=== PATIENT | female | born 1970 | race Two or more races ===

== ENCOUNTER 2024-06-28 17:12 | Emergency (ER) | payer MEDICAID, SELFPAY ==
[2024-06-28 17:15] VITALS: BMI 40.8
[2024-06-28 17:38] VITALS: BP 141/82; PULSE 68; RESP 18; TEMP 36.9; O2SAT 99
--- NOTE | 2024-06-28 17:59 | XR_ITS ---
Examination: CT abdomen and pelvis without contrast. Coronal 3-D reconstructions. Sagittal 2-D reconstructions. Date and time of exam:June 28, 2024 1824 hrs. Indications: Right lower abdominal pain with nausea beginning 3 days ago CTDI: vol (mGy): 14.1 DLP: (mGycm): 708 Technique: Axial images of the abdomen have been obtained, 3 mm slice thickness Intravenous contrast material has not been administered. Low dose protocols were performed. One or more of the following dose reduction techniques were used; automated exposure control, adjustment of the mA and/or KV according to patient size, use of iterative reconstruction technique. Findings: No focal liver or splenic lesions No pancreatic or adrenal mass Severe scarring right kidney, no hydronephrosis renal or ureteral calculi Aorta normal size Normal appendix No bowel obstruction No diverticulitis or nonspecific colitis Absent uterus Urinary bladder intact Mild lumbar spondylosis Impression: Severe scarring right kidney, no hydronephrosis renal or ureteral calculi Normal appendix No bowel obstruction diverticulitis or free air
--- NOTE | 2024-06-28 17:59 | PD.EDRME ---
Rapid Medical Screening Exam RME Arrival date/time: 06/28/24 17:12 54-year-old female presents to the emergency department today with complaints of pelvic pain and back pain Chief Complaint: Abdominal Pain Vital signs: Vital Signs Temperature 98.4 F 06/28/24 17:38 Pulse Rate 68 06/28/24 17:38 Respiratory Rate 18 06/28/24 17:38 Blood Pressure 141/82 H 06/28/24 17:38 Pulse Oximetry (%) 99 06/28/24 17:38 Oxygen Delivery Method Room Air 06/28/24 17:38
[2024-06-28 18:24] LABS: Collection Type, Urine Clean Catch
[2024-06-28 18:29] LABS: Basophils % (Auto) 0 % (0-2.5); Eosinophils # (Auto) 0.5 Thou/mm3 (0.0-0.5); Eosinophils % (Auto) 8 % (0-10); Hematocrit 38.3 % (36.0-46.0); Hemoglobin 12.7 g/dL (12.0-16.0); Immature Granulocytes % (Auto) 0 % (0-0); Immature Granulocytes Auto 0.01 Thou/mm3 (0.00-0.00); Lymphocytes # (Auto) 2.3 Thou/mm3 (1.0-4.8); Lymphocytes % (Auto) 35 % (10-50); Mean Corpuscular HGB Conc 33.2 g/dl (31.0-37.0); Mean Corpuscular Hemoglobin 28.2 pg (25.0-35.0); Mean Corpuscular Volume 85 fL (80-100); Monocytes # (Auto) 0.3 Thou/mm3 (0.0-0.8); Monocytes % (Auto) 4 % (0-12); Neutrophils # (Auto) 3.6 Thou/mm3 (1.8-7.7); Neutrophils % (Auto) 53 % (37-80); Nucleated Red Blood Cell % 0 /100 WBC (0); Platelet Count 241 Thou/mm3 (140-440); RDW Standard Deviation 41.1 fL (36.4-46.3); Red Blood Count 4.51 Miln/mm3 (4.00-5.20); White Blood Count 6.7 Thou/mm3 (3.6-11.0)
[2024-06-28 18:40] LABS: Bilirubin,Urine Negative (Negative); Blood,Urine Negative (Negative); Clarity,Urine Turbid (Clear/Hazy); Color,Urine Lt-Yellow (Lt Yel-Yel); Glucose, Urine Negative (Negative); Ketones,Urine Negative (Negative); Leukocyte Esterase,Urine Positive (Negative); Nitrite,Urine Positive (Negative); Protein,Urine Negative (Neg - Trace); RBC,Urine < 1 /hpf (0-3); Specific Gravity,Urine 1.018 (1.001-1.035); Squamous Epithelial Cell,Urine 3 /hpf (0-5); Urobilinogen,Urine Negative mg/dL (0.0-1.0); WBC,Urine 16 /hpf (0-5)
[2024-06-28 18:43] LABS: Culture Indicated,Urine Yes
[2024-06-28 18:44] LABS: Alanine Aminotransferase 21 U/L (10-49); Albumin, Serum 4.3 gm/dL (3.5-5.0); Albumin/Globulin Ratio 1.6 (1.2-2.2); Alkaline Phosphatase 118 U/L (46-116); Anion Gap 5 (7-16); Aspartate Amino Transferase 21 U/L (0-34); BUN/Creatinine Ratio 26 Ratio (12-20); Bilirubin,Total 0.2 mg/dL (0.3-1.2); Blood Urea Nitrogen 18 mg/dL (9-23); Calcium 9.4 mg/dL (8.3-10.6); Calcium (Corrected) 9.4 mg/dL (8.5-10.1); Carbon Dioxide 28.2 mMol/L (20.0-31.0); Chloride 106 mMol/L (98-107); Creatinine (Component) 0.7 mg/dL (0.6-1.3); Estimated Creatinine Clearance 82.4 mL/min (>60); Globulin 2.7 gm/dL (2.3-3.5); Glucose 100 mg/dL (74-106); Lipase 41 U/L (12-53); Osmolality,Calculated 279 (275-295); Potassium 4.2 mMol/L (3.4-5.1); Sodium 139 mMol/L (136-145); eGFR > 60 See Note
--- NOTE | 2024-06-28 19:53 | PD.EDABDPN ---
ED Abdominal Pain RME/HPI General Chief Complaint: Abdominal Pain Stated complaint: BACK AND ABD PAIN x 3 DAYS Time seen by provider: 06/28/24 19:37 Arrival date/time: 06/28/24 17:12 54 year old female present to emergency room with c/o right side/flank pain for 3 days. LOCATION: flank/abd pain SEVERITY: Symptoms are described as being severe with limitations on activities of daily living QUALITY: Symptoms are described as being cramping CONTEXT: The patient is unable to identify any inciting events. DURATION/TIMING: The symptoms started approximately 3 day ago and have been waxing/waning but always present without ever completely resolving. ASSOCIATED SYMPTOMS: The patient is unable to identify any other associated symptoms. MODIFYING FACTORS: The patient is unable to identify any alleviating or aggravating symptoms. PERTINENT ROS: no fevers, no anorexia, no nausea or vomiting, no diarrhea, no ripping or tearing sensations, no syncope or presyncopal symptoms, denies trauma, denies genital pain REVIEW OF SYSTEMS: See History of Present Illness - with the exception of those mentioned in the history of present illness, all other systems reviewed and reported as negative GENERAL: In general the patient is awake, interactive, in an emergency department gurney. HEAD/EYES/EARS/NOSE/THROAT: normo-cephalic, atraumatic, mucus membranes are moist, anicteric, palpebral conjunctiva is pink, trachea is midline. CARDIOVASCULAR: regular rate and regular rhythm, no murmurs, heart sounds are not distant, strong pulses in all four extremities that are equal and symmetric bilateral upper and lower extremities, normal capillary refill. CHEST/PULMONARY: normal chest rise and fall, good air movement, clear to auscultation bilaterally, normal inspiratory to expiratory ratios without evidence of respiratory distress. NECK: No midline +right flank/side tenderness, no cva tenderness no masses appreciated BACK: normal range of motion without pain. NEUROLOGICAL: cranio-facial features are symmetric, moves all four extremities equally without obvious limitations or weakness. EXTREMITY: no tenderness to palpation over the long bones or large joints of the bilateral upper and lower extremities, no joint swelling, no joint erythema, no signs of trauma, no unilateral leg swelling and no peripheral edema. SKIN: warm, dry, well-perfused, no jaundice, no rash, no telangiectasias or petechia. PSYCH: calm, cooperative, no evidence of psychosis or agitation RME / HPI RME / HPI narrative: 06/28/24 17:12 54-year-old female presents to the emergency department today with complaints of pelvic pain and back pain Related Data Home Medications ?Medication ?Instructions ?Recorded ?Confirmed aspirin 81 mg tablet,delayed 81 mg PO QDAY 01/24/20 04/17/20 release Previous Rx's ?Medication ?Instructions ?Recorded cephalexin 500 mg capsule (Keflex) 500 mg PO QID #40 caps 04/17/20 ibuprofen 800 mg tablet 800 mg PO Q8H PRN pain #20 tabs 07/22/22 ondansetron 4 mg disintegrating 4 mg PO Q8H PRN nausea and 11/04/22 tablet vomiting #10 tabs ibuprofen 600 mg tablet 600 mg PO Q6H #30 tabs 02/08/24 cephalexin 500 mg capsule 500 mg PO BID 7 days #14 caps 06/28/24 Allergies Allergy/AdvReac Type Severity Reaction Status Date / Time No Known Allergies Allergy Verified 06/28/24 17:18 Course Course Course Narrative: Patient presenting with symptoms consistent with urinary tract infection. No evidence for pyelonephritis, nephrolithiasis, traumatic injury, other significant pathology. Urinalysis shows findings consistent with UTI.? test was obtained and was negative.? GC/C was not obtained at request of pt.? Provided prescription for antibiotics. Advised to followup with primary physician if has continued symptoms. Return to ER if has uncontrolled pain, high fever, concern for dehydration, flank pain or other concerns. Plan:? Prescribed keflex 500mg bid for 7 days, first dose given prior to discharge UTI prevention was discussed including post coital voiding, copious fluids and daily cranberry juice. F/U with PCP if pain continues? ?Informed to return if having uncontrolled pain, high fever, concern for dehydration, flank pain or other concerns. Expressed understanding of and agreement with plan and all questions answered. Quality Measures none Orders Category Date Time Status CT abdomen pelvis wo con Stat Exams 06/28/24 17:59 Completed CBC Stat Lab 06/28/24 18:17 Completed Comprehensive Metabolic Panel Stat Lab 06/28/24 18:17 Completed Lipase Stat Lab 06/28/24 18:17 Completed UA, C/S IF [Urinalysis, C/S if Indicated] Stat Lab 06/28/24 18:05 Completed Urine Culture Stat Lab 06/28/24 18:05 Received cephALEXin [Keflex] Med 06/28/24 19:50 Discontinued 500 mg PO X1 ONE Vital Signs Vital signs: Vital Signs Temperature 98.4 F 06/28/24 17:38 Pulse Rate 68 06/28/24 17:38 Respiratory Rate 18 06/28/24 17:38 Blood Pressure 141/82 H 06/28/24 17:38 Pulse Oximetry (%) 99 06/28/24 17:38 Oxygen Delivery Method Room Air 06/28/24 17:38 Abdominal Pain MDM Patient data External records reviewed:: [facility] previous records Clinical information provided by:: patient Social determinants that could affect healthcare access:: none Patient has the following chronic illnesses:: none How is presenting disease/condition affected by chronic disease/condition?: no chronic disease Evaluation data The following diagnostics were reviewed and interpreted by me:: lab results and radiology exam(s) Lab and/or radiology exams considered but not ordered:: none Interpretation Summary: ct: No focal liver or splenic lesions No pancreatic or adrenal mass Severe scarring right kidney, no hydronephrosis renal or ureteral calculi Aorta normal size Normal appendix No bowel obstruction No diverticulitis or nonspecific colitis Absent uterus Urinary bladder intact Mild lumbar spondylosis Impression: Severe scarring right kidney, no hydronephrosis renal or ureteral calculi Normal appendix No bowel obstruction diverticulitis or free air cbc/cmp no acute findings ua: nitrate + leuks possible UTI, Medications / Prescriptions Medications or Prescriptions considered but not ordered:: none Medication administrations:: Medication Administration History Discontinued Medications Cephalexin HCl (Cephalexin 250 Mg Capsule) 500 mg PO X1 ONE Stop: 06/28/24 19:51 as stated above Consultations Consultation(s) initiated? (list below): No Diagnosis Differential diagnosis abdominal pain: abdominal pain, acute appendicitis, calculus of kidney, constipation, diverticulitis, gastroenteritis, pancreatitis and other (UTI ) Most likely diagnosis given after review of the tests above:: UTI Admission Indicated Admission indicated?: not indicated Admission Request Was there a request for admission?: No Disposition Plan Disposition Plan: Discharge Discharge Attestation Discharge Attestation: The patient and all family members were given an opportunity to ask questions and understood the discharge instructions. Discharge instructions specifically effects, indications for sooner follow up or return to the emergency department, and the expected course of current diagnosis. Patient condition: Stable Discharge Plan Plan Patient Disposition: HOME (Self Care) Health Concerns: Follow with PMD as directed Take tylenol or motrin as need Return to ED if sx worsen Prescriptions/Referrals Prescriptions/Med Rec: New cephalexin 500 mg capsule 500 mg PO BID 7 Days Qty: 14 0RF No Action cephalexin [Keflex] 500 mg capsule 500 mg PO QID Qty: 40 0RF aspirin 81 mg Tablet,Delayed Release (Dr/Ec) 81 mg PO QDAY ibuprofen 800 mg tablet 800 mg PO Q8H PRN (Reason: pain) Qty: 20 0RF ibuprofen 600 mg tablet 600 mg PO Q6H Qty: 30 0RF ondansetron 4 mg tablet,disintegrating 4 mg PO Q8H PRN (Reason: nausea and vomiting) Qty: 10 0RF Referrals: Scott Munoz MD [Primary Care Provider] - In 1 week Problem List Clinical Impression: UTI (urinary tract infection) Patient/Caregiver Discharge Instructions Education Materials: Understanding Urinary Tract ... Print Language: Amharic Stand Alone Forms: Vicki Award Info., Patient Portal Info Letter
[2024-06-28] MEDS: cephALEXin 250 MG CAPSULE 500 MG PO (20:00)
== END 2024-06-28 20:04 | disposition home or self-care (01) ==
PROVIDERS: Nurse Practitioner Primary Care; Emergency Provider Emergency Medicine; PCP Family Medicine
DX: N39.0 Urinary tract infection, site not specified (principal); M47.816 Spondylosis without myelopathy or radiculopathy, lumbar region; N28.89 Other specified disorders of kidney and ureter
CPT/HCPCS: 36415; 74176; 80053; 81001; 83690; 85025; 87077; 87086; 87186; 99284; A9270

== ENCOUNTER → 2024-10-06 | Outpatient (CLI) | payer MEDICAID, SELFPAY ==
--- NOTE | 2024-10-06 13:59 | XR_ITS ---
Examination: Breast ultrasound, unilateral, left complete Date and time of exam: October 06, 2024 1433 hours History left breast pain, family history, sister breast cancer Technique: Real-time norman scale ultrasonographic imaging performed left breast including all 4 quadrants as well as nipple retroareolar and axillary region. Findings: No cystic or solid mass Dilated ducts retroareolar IMPRESSION: BI-RADS Category 2: Benign findings
== END | disposition home or self-care (01) ==
LOC: CDIM 13:40
PROVIDERS: PCP Family Medicine; Referring Provider Family Medicine; Visit Provider Family Medicine
DX: N64.4 Mastodynia (principal); Z80.3 Family history of malignant neoplasm of breast
CPT/HCPCS: 76641

== ENCOUNTER 2024-12-29 19:39 | Emergency (ER) | payer MEDICAID, SELFPAY ==
[2024-12-29 20:44] VITALS: BP 132/80; PULSE 69; RESP 15; TEMP 36.9; O2SAT 97
--- NOTE | 2024-12-29 21:04 | XR_ITS ---
Examination: CT brain head without contrast. 2-D sagittal coronal reconstructions Date and time of exam:December 29, 2024, 2149 hours INDICATIONS: Onset hypertension and dizziness today CTDI: vol (mGy):48 DLP: (mGycm):916 Technique: Multiple CT axial sections of the brain have been obtained, 5 mm slice thickness. Contrast has not been administered. 2-D sagittal, coronal reconstructions have been obtained Low dose protocols were performed. One or more of the following dose reduction techniques were used; automated exposure control, adjustment of the mA and/or KV according to patient size, use of iterative reconstruction technique. Findings: No significant ventricular enlargement. Intra-axial or extra-axial hemorrhage density is not seen. No mass effect or midline shift Basal cisterns are not remarkable. Fourth ventricle is midline. Cranial vault intact. Impression: Negative for acute hemorrhage, mass effect or midline shift
--- NOTE | 2024-12-29 21:04 | EKG_ITS ---
[facility] Test Date: 2024-12-29 Pat Name: TOMER BRADY Department: Room: - Gender: Female [employer]: : 1970 Requested By: Deshawn Jimenez Order Number: [id number] Reading MD: Deshawn Jimenez Measurements Intervals Cochrane Rate: 67 P: 41 CT: 175 QRS: 17 QRSD: 82 T: 38 QT: 376 QTc: 399 Interpretive Statements SINUS RHYTHM Compared to ECG 01/24/2020 15:38:24 Sinus bradycardia no longer present First degree AV block no longer present /store/S0/[id number]/ecg/[id number].pdf
--- NOTE | 2024-12-29 21:05 | EDRME_ITS ---
Rapid Medical Screening Exam ON LICENSE OF [facility] Arrival date/time: 12/29/24 19:39 54F with history of unknown heart condition (on baby aspirin) presents to ED with 2 days of dizziness, N/V, fatigue/weakness, and mild RAMIREZ. Patient denies URI symptoms. Chief Complaint: Dizziness Vital signs: Vital Signs Temperature 98.5 F 12/29/24 20:44 Pulse Rate 69 12/29/24 20:44 Respiratory Rate 15 12/29/24 20:44 Blood Pressure 132/80 H 12/29/24 20:44 Pulse Oximetry (%) 97 12/29/24 20:44 Oxygen Delivery Method Room Air 12/29/24 20:44
[2024-12-29] MEDS: MECLIZINE HCL 25 MG TABLET PO (21:19)
[2024-12-29 21:51] LABS: Basophils # (Auto) 0.0 Thou/mm3 (0.0-0.2); Basophils % (Auto) 0 % (0-2.5); Eosinophils # (Auto) 0.6 Thou/mm3 (0.0-0.5); Eosinophils % (Auto) 9 % (0-10); Hematocrit 38.3 % (36.0-46.0); Hemoglobin 12.3 g/dL (12.0-16.0); Immature Granulocytes Auto 0.01 Thou/mm3 (0.00-0.00); Lymphocytes # (Auto) 2.2 Thou/mm3 (1.0-4.8); Lymphocytes % (Auto) 33 % (10-50); Mean Corpuscular HGB Conc 32.1 g/dl (31.0-37.0); Mean Corpuscular Hemoglobin 27.9 pg (25.0-35.0); Mean Corpuscular Volume 87 fL (80-100); Monocytes # (Auto) 0.3 Thou/mm3 (0.0-0.8); Monocytes % (Auto) 4 % (0-12); Neutrophils # (Auto) 3.6 Thou/mm3 (1.8-7.7); Neutrophils % (Auto) 54 % (37-80); Nucleated Red Blood Cell # 0.00 Thou/mm3 (0.00-0.00); Nucleated Red Blood Cell % 0 /100 WBC (0); Platelet Count 264 Thou/mm3 (140-440); RDW Standard Deviation 43.3 fL (36.4-46.3); Red Blood Count 4.41 Miln/mm3 (4.00-5.20); White Blood Count 6.7 Thou/mm3 (3.6-11.0)
[2024-12-29 22:17] LABS: Alanine Aminotransferase 28 U/L (10-49); Albumin, Serum 4.5 gm/dL (3.5-5.0); Albumin/Globulin Ratio 1.8 (1.2-2.2); Alkaline Phosphatase 125 U/L (46-116); Anion Gap 9 (7-16); Aspartate Amino Transferase 27 U/L (0-34); BUN/Creatinine Ratio 20 Ratio (12-20); Bilirubin,Total 0.3 mg/dL (0.3-1.2); Blood Urea Nitrogen 14 mg/dL (9-23); Calcium 10.0 mg/dL (8.3-10.6); Calcium (Corrected) 10.0 mg/dL (8.5-10.1); Carbon Dioxide 27.0 mMol/L (20.0-31.0); Chloride 105 mMol/L (98-107); Creatinine (Component) 0.7 mg/dL (0.6-1.3); Globulin 2.5 gm/dL (2.3-3.5); Glucose 105 mg/dL (74-106); Osmolality,Calculated 281 (275-295); Potassium 3.9 mMol/L (3.4-5.1); Sodium 141 mMol/L (136-145); Total Protein 7.0 gm/dL (5.7-8.2); Troponin I < 0.002 ng/mL (0.0-0.045); eGFR > 60 See Note
[2024-12-29 22:34] LABS: Collection Type, Urine Clean Catch; RBC,Urine 0 /hpf (0-3); WBC,Urine 0 /hpf (0-5)
[2024-12-29 22:57] LABS: Amphetamine/Methamp Scrn,U Negative (Negative); Barbiturate Screen,Urine Negative (Negative); Benzodiazepines Screen,Urine Negative (Negative); Benzoylecgonine Screen, Ur Negative (Negative); Fentanyl Screen,Urine Negative (Negative); Opiate Screen,Urine Negative (Negative); THC Screen,Urine Negative (Negative)
[2024-12-29 23:10] LABS: Bacteria,Urine Rare; Bilirubin,Urine Negative (Negative); Blood,Urine Negative (Negative); Clarity,Urine Clear (Clear/Hazy); Color,Urine Lt-Yellow (Lt Yel-Yel); Culture Indicated,Urine Not Indicated; Glucose, Urine Negative (Negative); Ketones,Urine Negative (Negative); Leukocyte Esterase,Urine Negative (Negative); Nitrite,Urine Negative (Negative); PH,Urine 6.5 (5.0-7.0); Protein,Urine Negative (Neg - Trace); Specific Gravity,Urine 1.015 (1.001-1.035); Squamous Epithelial Cell,Urine 2 /hpf (0-5); Urobilinogen,Urine Negative mg/dL (0.0-1.0)
[2024-12-29 23:13] LABS: HCG Qualitative,Urine Negative
[2024-12-30 00:09] VITALS: BP 136/83; PULSE 64; RESP 18; TEMP 36.4; O2SAT 99
--- NOTE | 2024-12-30 00:24 | EDNOTE_ITS ---
ED General RME/HPI General Chief complaint: Dizziness Stated complaint: DIZZINESS,NAUSEA Arrival date/time: 12/29/24 19:39 RME / HPI RME / HPI narrative: 12/29/24 19:39 54F with history of unknown heart condition (on baby aspirin) presents to ED with 2 days of dizziness, N/V, fatigue/weakness, and mild RAMIREZ. Patient denies URI symptoms. 54-year-old female with some heart condition which she does not know which one and used to take in a baby aspirin, but does not take a baby aspirin anymore came into the ED today with a chief complaint of nausea, dizziness, headaches, and weakness for the past 3 days. Patient states that she has taken her blood pressure has been elevated in the 180s and she decided to come to the ED. She mentions that she does have an appoint with her primary care physician which is at the of this month, but that she wanted her blood work to be checked earlier. Otherwise she denies having any chest pain, shortness of breath, falls, trauma, abdominal pain, change in bowel movement, or dysuria. Denies any smoking, drugs, alcohol Related Data Home Medications ?Medication ?Instructions ?Recorded ?Confirmed aspirin 81 mg tablet,delayed 81 mg PO QDAY 01/24/20 release Previous Rx's ?Medication ?Instructions ?Recorded cephalexin 500 mg capsule (Keflex) 500 mg PO QID #40 c aps 04/17/20 ibuprofen 800 mg tablet 800 mg PO Q8H PRN pain #20 t abs 07/22/22 ondansetron 4 mg disintegrating 4 mg PO Q8H PRN nausea and 11/04/22 tablet vomiting #10 tabs ibuprofen 600 mg tablet 600 mg PO Q6H #30 tabs 02/07 Allergies Allergy/AdvReac Type Severity Reaction Status Date / Time No Known Allergies Allergy Verified 12/29/24 19:40 Review of Systems Review of Systems Systems Reviewed: All systems reviewed, normal except as documented Past Medical History Past Medical History NEUROLOGIC: Positive Neurological Disorders and Migraine; Negative Seizures CARDIAC: Positive Angina and Edema; Negative Cardiac Disorders or Congestive Heart Failure RESPIRATORY: Negative Chronic Obstructive Pulmonary Disease (COPD) or Asthma GASTROINTESTINAL: Positive Gastrointestinal Disorders, Gall Bladder Disease, Gastroesophageal Reflux Disease and Obesity GENITOURINARY: Positive Genitourinary Disorders and Kidney Stones; Negative Renal Disease REPRODUCTIVE: Positive Previous Pregnancies MUSCULOSKELETAL: Negative Musculoskeletal Disorders ENDOCRINE: Negative Endocrine Disorders, Diabetes Mellitus Type 1 or Diabetes Mellitus Type 2 HEMATOLOGIC: Negative Blood Disorders, Anemia, Sickle Cell Disease or Clotting Problems OTHER HISTORY: Positive Chicken Pox; Negative Hospitalization, Autoimmune Disease, Shingles, Falls, Blood Transfusions, Blood Transfusion Reaction, Anesthesia Reactions, Chemotherapy, Radiation Therapy or Cancer Family History FAMILY HISTORY: Positive Family Cardiac Disorders and Family Surgery; Negative Family Psychiatric Problems, Family Respiratory Disorders, Family Ga strointestinal Problems, Family Cancer or Family Anesthesia Reaction Surgical History SURGICAL: Positive Abdominal Surgery, Hysterectomy and Tubal Ligation; Negative Cardiac Surgery Social History SMOKING STATUS: Never smoker SUBSTANCE USE: does not use ED Exam Narrative Physical exam: Gen: A&O X 3, NAD HEENT: NCAT, EOMI, Pupils reactive JOSE, not icteric. External ears normal. No rhinorrhea. Moist mucous membranes. Neck: Supple, full range of motion, no observable masses, No meningeal sign. Lungs: No Respiratory distress, clear bilateral. CV: RRR, no murmurs. Abdomen: Soft, nondistended, No rebound tenderness. MSK: No joint swelling, no redness, peripheral pulses presents, lumbar with no edema. Skin: No rashes, petechiae, lesions. Neuro: No focal neurological deficits appreciated, sensory and motor intact. Psych: Cooperative, appropriate mood and effect. Course Quality Measures none Orders Category Date Time Status EKG (ED ONLY) *Do not use* NOW Care 12/29/24 21:[address] head/brain wo con Stat Exams 12/29/24 21:04 Completed EKG (ED Only) Stat Exams 12/29/24 21:04 Draft CBC Stat Lab 12/29/24 21:32 Completed Comprehensive Metabolic Panel Stat Lab 12/29/24 21:32 Completed Drug Screen,Urine Stat Lab 12/29/24 22:15 Completed HCG Qualitative,Urine Stat Lab 12/29/24 22:15 Completed Troponin I Stat Lab 12/29/24 21:32 Completed Urinalysis, C/S if Indicated Stat Lab 12/29/24 22:15 Completed Meclizine HCl [Antivert] Med 12/29/24 21:05 Discontinued 25 mg PO X1 ONE Vital Signs Vital signs: Vital Signs Temperature 98.5 F 12/29/24 20:44 Pulse Rate 69 12/29/24 20:44 Respiratory Rate 15 12/29/24 20:44 Blood Pressure 132/80 H 12/29/24 20:44 Pulse Oximetry (%) 97 12/29/24 20:44 Oxygen Delivery Method Room Air 12/29/24 20:44 Discharge Plan Plan Patient Disposition: HOME (Self Care) Prescriptions/Referrals Prescriptions/Med Rec: No Action cephalexin [Keflex] 500 mg capsule 500 mg PO QID Qty: 40 0RF aspirin 81 mg Tablet,Delayed Release (Dr/Ec) 81 mg PO QDAY ibuprofen 800 mg tablet 800 mg PO Q8H PRN (Reason: pain) Qty: 20 0RF ibuprofen 600 mg tablet 600 mg PO Q6H Qty: 30 0RF ondansetron 4 mg tablet,disintegrating 4 mg PO Q8H PRN (Reason: nausea and vomiting) Qty: 10 0RF Referrals: No Primary/Family,Physician [Primary Care Provider] - In 1 week Problem List Clinical Impression: Dizziness, Headache, Elevated blood pressure reading Patient/Caregiver Discharge Instructions Other Activity Instructions:: Follow-up with primary care physician within 1 to 2 days Recommend to keep a log of your blood pressure readings and take to your primary care physician You can take Tylenol every 6 hours as needed for pain for the next 2 or 3 days Can take ibuprofen every 8 hours for the next 2 days if pain still persist after Tylenol. Come back to the ED if symptoms persist or worsen. Consulte con aldana m?dico de cabecera en 1 o 2 d?as. Se recomienda llevar un registro de yeimy lecturas de presi?n arterial y consultar con aldana m?dico de cabecera. Puede dada Tylenol cada 6 horas seg?n sea necesario para el dolor britney los pr?ximos 2 o 3 d?as. Puede dada ibuprofeno cada 8 horas britney los pr?ximos 2 d?as si el dolor persiste despu?s de dada Tylenol. Vuelva a urgencias si los s?ntomas persisten o empeoran. Education Materials: Self-Care for Headaches, ED Dizziness, Uncertain Cause Print Language: Romanian Stand Alone Forms: Vicki Award Info., Patient Portal Info Letter MDM Narrative MDM hospital course: Patient was seen and evaluated upon arrival by myself. Labs were reviewed and were unremarkable. Head CT was negative. At this time patient stable enough to be discharged home. She will need close follow-up with primary care physician. Patient agrees with plan. Case disclosed with Attending Dr. 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 Medication Administration(s) Medication Administration History Discontinued Medications Meclizine HCl (Meclizine Hcl 25 Mg Tablet) 25 mg PO X1 ONE Stop: 12/29/24 21:06 Last Admin: 12/29/24 21:19 Dose: 25 mg Documented By: EF
== END 2024-12-30 00:38 | disposition home or self-care (01) ==
PROVIDERS: Physician Assistant; Emergency Provider Emergency Medicine
DX: R42 Dizziness and giddiness (principal); R51.9 Headache, unspecified; R03.0 Elevated blood-pressure reading, without diagnosis of hypertension
CPT/HCPCS: 36415; 70450; 80053; 80307; 81001; 81025; 84484; 85025; 93005; 99283; A9270

== ENCOUNTER → 2025-01-14 | Outpatient (CLI) | payer MEDICAID, SELFPAY ==
--- NOTE | 2025-01-14 | XR_ITS ---
Examination: Diagnostic digital mammography, bilateral Computer aided detection 3-D breast Tomosynthesis, bilateral Date and time of exam: 01/14/2025, 2:30 PM Comparisons: September 2021 through May 2023 Indications:Intermittent right breast pain x1 year Technique: Nonmagnified MLO, CC views of the breasts to been obtained, reconstructed from 3-D Tomosynthesis images. R2 computer aided detection program utilized for evaluation of suspicious masses and/or abnormal calcifications. 3-D Tomosynthesis images obtained. Findings: There are scattered areas of fibroglandular density. No evidence of abnormal masses or suspicious calcifications. Impression: BI-RADS category 1: Negative findings (within normal) Recommend 1 year follow-up mammogram
--- NOTE | 2025-01-14 14:05 | XR_ITS ---
Examination: Breast ultrasound, unilateral, right complete Date and time of exam: January 14, 2025 1417 hours INDICATIONS: Right breast pain beginning one year ago, family history breast cancer Technique: Real-time norman scale ultrasonographic imaging performed right breast including all 4 quadrants as well as nipple retroareolar and axillary region. Findings: No cystic or solid mass IMPRESSION: BI-RADS Category 1: Negative study
== END | disposition home or self-care (01) ==
LOC: CDIM 13:52
DX: R92.313 Mammographic fatty tissue density, bilateral breasts (principal); Z80.3 Family history of malignant neoplasm of breast
CPT/HCPCS: 76641; 77062; 77066; G0279